=== PATIENT | female | born 1960 | race American Indian/Alaskan Native ===

== ENCOUNTER 2020-06-14 15:18 | Emergency (ER) | payer OTHER ==
[2020-06-14 15:31] VITALS: BP 157/92
[2020-06-14] MEDS ORDERED: LORazepam 1 MG TAB PO ONE (19:07)
--- NOTE | 2020-06-14 19:12 | Emergency Department Report ---
ED Medical Clearance HPI - General Chief complaint: Medical Clearance Stated complaint: WITHDRAWALS FROM MEDS Time Seen by Provider: 06/14/20 19:06 Source: patient Mode of arrival: Ambulatory Limitations: No Limitations - History of Present Illness Initial comments: Patient is a 60-year-old -[place] female who presents for palpitations and symptoms of withdrawal. Patient states history of chronic back pain taking oxycodone as needed for same. States last dose 1 week ago. States symptoms started 3 days ago and have gotten progressively worse. Now states active palpitations 4/10 intermittent. Symptoms are exacerbated by anxiety. Symptoms are relieved by nothing tried. Patient states she took 1 Lortab earlier today however symptoms have returned after medication wore off. States she went to urgent care center. Referral to [facility] , patient denies other history. There is no nausea, and vomiting. No dizziness, or lightheadedness. pt states from [place] previous PCP: Mohan Ulloa , Oxycodone 10 qid prn, verified via: [facility]. Onset/Timin -: days(s) Allergies/Adverse reactions: Allergies Allergy/AdvReac Type Severity Reaction Status Date / Time No Known Allergies Allergy Unverified 06/14/20 19:21 ED Review of Systems ROS: Stated complaint: WITHDRAWALS FROM MEDS Other details as noted in HPI Constitutional: malaise Eyes: denies: eye pain, eye discharge, vision change ENT: denies: ear pain, throat pain Respiratory: denies: cough, shortness of breath, wheezing Cardiovascular: palpitations Endocrine: no symptoms reported Gastrointestinal: denies: abdominal pain, nausea, vomiting, diarrhea Genitourinary: denies: urgency, dysuria, discharge Musculoskeletal: denies: back pain, joint swelling, arthralgia Skin: denies: rash, lesions Neurological: denies: headache, weakness, paresthesias Psychiatric: anxiety. denies: depression, auditory hallucinations, visual h allucinations, homicidal thoughts, suicidal thoughts Hematological/Lymphatic: denies: easy bleeding, easy bruising ED Past Medical Hx - Past Medical History Previous Medical History?: Yes Additional medical history: BACK PAIN, - Surgical History Past Surgical History?: Yes Additional Surgical History: L4, L5 ED Physical Exam - General Limitations: No Limitations General appearance: alert, in no apparent distress - Head Head exam: Present: atraumatic, normocephalic - Eye Eye exam: Present: normal appearance - ENT ENT exam: Present: mucous membranes moist - Neck Neck exam: Present: normal inspection - Respiratory Respiratory exam: Present: normal lung sounds bilaterally. Absent: wheezes, stridor, chest wall tenderness - Cardiovascular Cardiovascular Exam: Present: regular rate, normal rhythm, normal heart sounds. Absent: systolic murmur, diastolic murmur, rubs, gallop - GI/Abdominal GI/Abdominal exam: Present: soft, normal bowel sounds. Absent: distended, tenderness, guarding, rebound, rigid, bruit, hernia - Rectal Rectal exam: Present: deferred - Extremities Exam Extremities exam: Present: normal inspection, full ROM. Absent: tenderness, pedal edema, joint swelling - Back Exam Back exam: Present: normal inspection, full ROM. Absent: tenderness, CVA tenderness (R), CVA tenderness (L), vertebral tenderness - Neurological Exam Neurological exam: Present: alert, oriented X3, CN II-XII intact, normal gait, reflexes normal. Absent: motor sensory deficit - Expanded Neurological Exam Expanded Patient oriented to: Present: person, place, time Speech: Present: fluid speech Upper motor neuron: Pronator Drift: Normal Motor strength exam: RUE: 5, LUE: 5, RLE: 5, LLE: 5 DTR: bicep (R): 2+, bicep (L): 2+, ankle (R): 2+, ankle (L): 2+ Best Eye Response (Labolt): (4) open spontaneously Best Motor Response (Adolfo): (6) obeys commands Best Verbal Response (Adolfo): (5) oriented Adolfo Total: 15 - Psychiatric Psychiatric exam: Present: normal affect, normal mood - Skin Skin exam: Present: warm, dry, intact, normal color. Absent: rash ED Course Vital Signs 06/14/20 15:25 Temperature 93.1 F L Pulse Rate 110 H Respiratory 18 Rate Blood Pressure 157/92 [Right] O2 Sat by Pulse 98 Oximetry ED Medical Decision Making - Medical Decision Making Pt elloped prior to completion of evaluation and diagnostics. paged x 3 no answer, no answer via phone attempt, ED Disposition Clinical Impression: Eloped from emergency department Disposition: ELOPED Is pt being admited?: No Does the pt Need Aspirin: No Condition: Undetermined Referrals: PRIMARY CARE,MD [Primary Care Provider] - 3-5 Days Time of Disposition: 20:31
== END 2020-06-14 19:15 | disposition left against medical advice (07) ==
LOC: ED 15:18
DX: M54.9 Dorsalgia, unspecified (principal); G89.29 Other chronic pain
CPT/HCPCS: 99281